=== PATIENT | female | born 1940 | race Caucasian/White ===

== ENCOUNTER 2020-07-06 11:32 | Emergency (ER) | payer MEDICARE ==
[2020-07-06 11:39] VITALS: BP 166/92; PULSE 94; O2SAT 95
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
== END 2020-07-06 12:22 | disposition home or self-care (01) ==
LOC: ED 11:32
DX: S39.012A Strain of muscle, fascia and tendon of lower back, initial encounter (principal); V89.2XXA Person injured in unspecified motor-vehicle accident, traffic, initial encounter
CPT/HCPCS: 99283

== ENCOUNTER 2020-10-15 06:52 | Day surgery (SDC) | payer MEDICARE ==
[~2020-10-15 06:52] MED LIST: Lactated Ringers 1,000 ML IV ONE; Sensorcaine 0.25% 10 ML ONE
[2020-10-15] MEDS ORDERED: CEFAZOLIN 2 GM-D5W BAG** 2 GM/50 ML ML IV ONE (06:56)
[2020-10-15] MEDS ORDERED: Lactated Ringers 1,000 ML IV ONE (06:56)
[2020-10-15] MEDS ORDERED: CEFAZOLIN 2 GM-D5W BAG** 2 GM/50 ML ML IV SCH (07:00)
[2020-10-15] MEDS ORDERED: Lactated Ringers 1,000 ML IV SCH (07:00)
--- NOTE | 2020-10-15 09:41 | HP ---
DATE OF SURGERY: 10/15/2020 HISTORY OF PRESENT ILLNESS: The patient is a 80 year-old found a lump in her right breast. Core biopsy invasive ductal carcinoma. She is now in need of fine needle placement. She did have a great-aunt and first cousin who had breast cancer. She had been discussed options breast conservative therapy, breast mastectomy. Following discussion with the patient she wished to proceed with breast conservation therapy, [place] lymph node biopsy. PAST MEDICAL HISTORY: Hypertension. PAST SURGICAL HISTORY: Denied any prior surgery. Had the core biopsy. MEDICATIONS: Vitamin D3, multivitamin, magnesium, metoprolol. ALLERGIES: NKDA. FAMILY HISTORY: Breast cancer. SOCIAL HISTORY: No smoking or alcohol abuse. REVIEW OF SYSTEMS: Fourteen systems reviewed. No chest pain or palpitations. Other systems negative or noncontributory as above and per preadmission questionnaire. PHYSICAL EXAMINATION: GENERAL: No acute distress. HEENT: Sclerae nonicteric. NECK: No JVD. CHEST: Equal excursion, nonlabored breathing. CVS: Regular rate and rhythm. ABDOMEN: Soft. No peritoneal signs. nontender, nondistended. EXTREMITIES: No significant edema. NEURO: Alert, oriented, moving extremities symmetrically. No gross motor deficits noted. PSYCH: Appropriate mood and affect. BREAST: Right breast density that she has had biopsied with bruising. IMPRESSION: Right breast cancer. She prefers conservative therapy. Will proceed with breast lumpectomy, prior needle placement per radiology as well as [place] node biopsy as an outpatient. Risks and benefits explained in detail including but not limited to bleeding or infection, risk of hematoma or seroma formation, infection possibly needing packing, risks of aches, pain, burning, numbness, problem moving her arm, shoulder, extremity weakness or wing of scapula, risk of lymphedema, risk of contour changes of the breast, risk of needing another procedure to treat it, general risk of anesthesia, deep venous thrombosis, pulmonary embolism, pneumonia, consent obtained, will proceed with lumpectomy with prior needle placement [place] node biopsy as an outpatient.
[2020-10-15] MEDS ORDERED: DIPRIVAN 200 MG/20 ML IV ONE (13:41)
[2020-10-15] MEDS ORDERED: Versed 2 MG/2 ML Injection ONE (13:41)
[2020-10-15] MEDS ORDERED: SUBLIMAZE 100 MCG/2 ML ONE ×2 (13:41→15:17)
[2020-10-15] MEDS ORDERED: Ephedrine Sulfate 50 MG/ML ONE (13:53)
--- NOTE | 2020-10-15 14:37 | XRAY ---
Indication: Right breast cancer. 4 subcutaneous right periareolar injections performed totaling 837 Ci. Delayed anterior and lateral planar images obtained. There are 2 small foci of radiopharmaceutical activity in the upper outer right breast. Impression: 2 foci of radiopharmaceutical activity upper outer quadrant right breast.
--- NOTE | 2020-10-15 14:38 | XRAY ---
Indication: Surgical specimen following needle wire localization. A single specimen radiograph demonstrates a intact hook belinda wire with the entire suspicious breast mass and mammotome clip present. Findings were reported to the surgeon.
--- NOTE | 2020-10-15 14:52 | XRAY ---
Indication: Needle wire localization for ultrasound biopsy-proven 10:00 right breast ductal carcinoma. Informed consent obtained. Right breast was compressed in the LM plane using a alphanumeric grid paddle. Skin was cleansed with Betadine swabs. A 20-gauge Ghiatas needle was then percutaneously. Orthogonal right mammogram was obtained confirming overall good needle tip placement. Ultimately a hooked belinda wire was then inserted into the needle with the outer needle removed. Repeat orthogonal digital mammograms obtained confirms overall good needle placement. Wire were secured and overlying bandage material applied. Patient was then taken to surgery. Impression: Technically successful needle wire localization 10:00 breast mass with mammotome clip. No immediate complications.
[2020-10-15 16:50] VITALS: BP 156/90; PULSE 72; O2SAT 92
--- NOTE | 2020-10-16 10:13 | OP ---
SURGERY DATE/TIME: 10/15/2020 1339 PREOPERATIVE DIAGNOSIS: Right breast cancer. POSTOPERATIVE DIAGNOSIS: Right breast cancer. PROCEDURES: 1) Right breast lumpectomy with prior needle placement. 2) [place] lymph node biopsy right axilla with radio lymphoscintigraphy. SURGEON: Dr. Trent Dobson. ANESTHESIA: General. ESTIMATED BLOOD LOSS: Minimal. INDICATIONS: As noted above. Risks and benefits explained in detail and not limited to and consent obtained. The site is marked in the preoperative holding area after she had been to radiology for nuclear injection and wire placement. DESCRIPTION OF PROCEDURE AND FINDINGS: The patient is taken to the operating room. General anesthesia induced. She is prepped and draped in usual sterile fashion. After official time out and no disagreement with planned procedure, the wire was trimmed a little bit as this wire was placed out towards the axilla it was elected to just make one incision to do both of the [place] nodes and the lumpectomy. Spindle-shaped incision in this part of the skin was taken. Dissection carried down circumferentially around this indurated mass that had previously been core biopsied. Dissection is carried directly off of the chest wall staying directly underneath this trying to create an adequate margin in rim of small amount of breast tissue. The specimen passed off. Radiology called back that the wire and the area in question were within the specimen. There was a little bit of thickened area right on the chest wall heading towards the nipple areolar area this was taken as a posterior-medial margin this is carefully dissected free. The original lumpectomy specimen with prior needle placement was marked with a double tie at 12:00, single tie at 3:00, additional posterior-medial margin with some thickened tissue was marked with two clips at the 3:00 position and single clip at the 12:00 position at the posterior-medial margin. Good hemostasis noted. Small, little inventory associate and driver controlled with 3-0 Vicryl suture ligature. At this time whether or not there was any gillian tissue with the breast specimen. It was passed off before we could put the Neoprobe on it. The Neoprobe was then carefully directed towards the axilla. The lymph node was high uptake around 91 compared to 1100 of the breast itself this is carefully dissected out with a combination of clips and the handheld LigaSure device. Again, this is a true hot [place] node. There were a couple of other nodes that were maybe a trace weaker beside them. They were passed off with that specimen. The Neoprobe did not reveal any other significant uptake in the remainder of the axilla. There was one other thickened node that maybe was plus or minus trace nuclear uptake this node was thickened. It was felt it warranted sending this node as an additional axillary node, passed off for pathology. The remainder of the axilla again the probe did not reveal any other significant uptake to warrant any other dissection. Good hemostasis noted. TERESSA drain is placed in the deep axilla. The axilla fascia fat pad closed back up to the breast tissue with running 3-0 Vicryl. Subcu closed with 3-0 Vicryl, skin closed with 4-0 Vicryl. Steri-Strips and sterile dressing applied. 0.25% Marcaine local injected along the area. TERESSA drain secured with PDS suture and placed to bulb suction. The patient tolerated the procedure well. Findings discussed with the family out in the waiting area.
== END 2020-10-15 17:10 | disposition home or self-care (01) ==
LOC: SDC 06:52
PROVIDERS: ATTEND Surgery
DX: C50.911 Malignant neoplasm of unspecified site of right female breast (principal); Z80.3 Family history of malignant neoplasm of breast; Z79.899 Other long term (current) drug therapy
CPT/HCPCS: 19281; 76098; 78195; 88305; 88307; 88360; 99100; J0690; J2250; J2704; J3010

== ENCOUNTER 2022-05-12 01:36 | Emergency (ER) | payer MEDICARE ==
--- NOTE | 2022-05-12 02:08 | ERPHSYRPT ---
- History of Present Illness Time Seen by Provider: 05/12/22 02:01 Source: patient Exam Limitations: no limitations Patient Subjective Stated Complaint: b/p was high 157/85, headache Triage Nursing Assessment: Pt ambulated into ER without diff. Pt states, "I couldn't sleep and I got up and checked my b/p and it was 157/85. I thought it was high so I came in". Pt alert and oriented x3, pleasant and cooperative. Pt had a headache at 1am and took 1 tylenol but does not have headache at this time. Physician History: Patient is 82-year-old female with significant past medical history of breast cancer as well as recently diagnosed hypertension for which patient was put on losartan 25 mg daily. Patient blood pressure was running around 1 10-1 20 systolic with diastolic in the range of 60-70 but patient was having some lightheadedness so patient called her primary care physician who advised her to stop the blood pressure medicine which she was on losartan 25 mg daily. Today she has a hard time going to sleep so she checks her blood pressure which was 157/85 at home so she got concerned because she was told that when her blood pressure goes above 140 systolic she needs to seek an attention. She denies any other symptoms including chest pain nausea vomiting headache. Currently blood pressure medicines she was started on was losartan and afterwards because of some couple low blood pressure readings she was advised to stop that. Timing/Duration: today Activities at Onset: none Severity of Pain-Max: none Severity of Pain-Current: none Nitro Today/Relief: no nitro taken today Aspirin Treatment Today: no aspirin today Associated Symptoms: denies symptoms Prior Chest Pain/Cardiac Workup: no prior chest pain Allergies/Adverse Reactions: No Known Drug Allergies Allergy (Verified 10/15/20 07:03) Home Medications: Cholecalciferol (Vitamin D3) [Vitamin D3] 400 unit PO DAILY 10/08/20 [History] Magnesium 250 mg PO DAILY 10/08/20 [History] Multivit-Minerals/Folic/Ginkgo [One Daily For Women 50+ Adv Tb] 1 each PO DAILY 10/08/20 [History] Losartan Potassium 25 mg PO DAILY 05/12/22 [History] Tamoxifen Citrate 20 mg PO DAILY 05/12/22 [History] Hx Tetanus, Diphtheria Vaccination/Date Given: No Hx Influenza Vaccination/Date Given: No Hx Pneumococcal Vaccination/Date Given: No Immunizations Up to Date: No Travel Risk - International Travel Have you traveled outside of the country in past 3 weeks: No - Coronavirus Screening Are you exhibiting any of the following symptoms?: No Close contact with a COVID-19 positive Pt in past 14-21 Days: No - Vaccine Status Have you recieved a Covid-19 vaccination: Yes Vinegar Maker: Diasome - Vaccination Dates Date of 2cond Vaccination (if applicable): 04/04/19 - Review of Systems Constitutional: No Symptoms Eyes: No Symptoms Ears, Nose, & Throat: No Symptoms Respiratory: No Symptoms Cardiac: No Symptoms Abdominal/Gastrointestinal: No Symptoms Genitourinary Symptoms: No Symptoms Musculoskeletal: No Symptoms Skin: No Symptoms Neurological: No Symptoms Psychological: No Symptoms Endocrine: No Symptoms Hematologic/Lymphatic: No Symptoms Immunological/Allergic: No Symptoms - Past Medical History Pertinent Past Medical History: Yes Neurological History: No Pertinent History ENT History: No Pertinent History Cardiac History: Hypertension Respiratory History: No Pertinent History Endocrine Medical History: No Pertinent History Musculoskeletal History: No Pertinent History GI Medical History: No Pertinent History History: No Pertinent History Psycho-Social History: No Pertinent History Female Reproductive Disorders: Breast Cancer Other Medical History: lump in right breast had biopsy, local anesthetic used. positive for breast ca. - Past Surgical History Past Surgical History: Yes Neuro Surgical History: No Pertinent History Cardiac: No Pertinent History Respiratory: No Pertinent History Gastrointestinal: No Pertinent History Genitourinary: No Pertinent History Musculoskeletal: No Pertinent History Female Surgical History: Lumpectomy - Social History Smoking Status: Never smoker Exposure to second hand smoke: No Drug Use: none Patient Lives Alone: No Significant Family History: no pertinent family hx - Nursing Vital Signs Nursing Vital Signs: Initial Vital Signs Temperature 97.9 F 05/12/22 01:46 Pulse Rate 99 H 05/12/22 01:46 Respiratory Rate 18 05/12/22 01:46 Blood Pressure 189/104 05/12/22 01:46 O2 Sat by Pulse Oximetry 96 05/12/22 01:46 Pain Scale Pain Intensity 0 - Physical Exam General Appearance: no apparent distress, alert Eye Exam: PERRL/EOMI, eyes nml inspection Ears, Nose, Throat Exam: normal ENT inspection, moist mucous membranes Neck Exam: normal inspection, non-tender, supple Respiratory Exam: normal breath sounds, lungs clear, No respiratory distress Cardiovascular Exam: regular rate/rhythm, normal heart sounds, No edema Gastrointestinal/Abdomen Exam: soft, No tenderness, No mass Back Exam: normal inspection, No CVA tenderness, No vertebral tenderness Extremity Exam: normal inspection, normal range of motion Neurologic Exam: alert, oriented x 3, cooperative, normal mood/affect, nml cerebellar function, sensation nml, No motor deficits Skin Exam: normal color, warm, dry Lymphatic Exam: No adenopathy SpO2: 96 - Course Nursing assessment & vital signs reviewed: Yes - Progress Progress: improved Air Movement: good Progress Note: 05/12/22 02:09 And was given 25 mg of losartan from on medicine supply in the emergency room. Patient was observed for 30 minutes. Patient was educated regarding blood pressure management. She is advised to take half her pill of losartan 25 mg every morning. Education about hypertension given. Counseled pt/family regarding: diagnosis, need for follow-up Medical Desision Making - Diagnostic Testing Diagnostic test were ordered, analyzed, and reviewed by me: No - Risk of complications Low Risk: Low risk of morbidity from additional dx testing or treatment - Departure Departure Disposition: Home Clinical Impression: Hypertension Qualifiers: Hypertension type: primary hypertension Qualified Code(s): I10 - Essential (primary) hypertension Condition: Stable Critical Care Time: No Referrals: BIA RECINOS [Primary Care Provider] - Follow Up with PCP/3 days Instructions: High Blood Pressure in Adults, High Blood Pressure (DC), High Blood Pressure Emergencies Additional Instructions: Please take losartan half tablet every morning which will be 12.5 mg every morning. It usually takes 1 to 2 weeks for your body to get adjust to the medication. During that time your blood pressure will fluctuate. For next 2 weeks your blood pressure range will be 1 40-1 50 systolic while 60-80 diastolic. Do not stop your blood pressure medicine suddenly. Follow-up with your primary care physician in next 2 to 3 days for further evaluation. Discharge/Care Plan BRYSON ROGERS was seen on 05/12/22 in the Emergency Room. The patient was counseled regarding Diagnosis,Lab results, Imaging studies, need for follow up and when to return to the Emergency Room. Prescriptions given: Discharge Note I have spoken with the patient and/or caregivers. I have explained the patient's condition, diagnosis and treatment plan based on the information available to me at this time. I have answered the patient's and/or caregiver's questions and addressed any concerns. The patient and/or caregivers have as good understanding of the patient's diagnosis, condition and treatment plan as can be expected at this point. The vital signs have been stable. The patient's condition is stable and appropriate for discharge from the emergency department. The patient will pursue further outpatient evaluation with the primary care physician or other designated or consulting physician as outlined in the discharge instructions. The patient and/or caregivers are agreeable to this plan of care and follow-up instructions have been explained in detail. The patient and/or caregivers have received these instruction. The patient/and or caregivers are aware that any significant change in condition or worsening of symptoms should prompt an immediate return to this or the closest emergency department or call 911. SUEBRYSON Vasquez was seen on 05/12/22 n the Emergency Room. At that time you were treated for an emergent condition, during your visit Laboratory, Radiology and/or other procedures may have been ordered. It is very important that you follow-up with your Primary Care Physician BIA RECINOS within the next 24- 48 hours to review your Emergency Room visit and the final results of testing that was ordered. Some test results such as Urine Cultures, Blood Cultures, and other cultures if ordered will not be finalized for 24-48 hours. If you do not have a Primary Care Provider please call the medical records department at [phone] ext [phone] to obtain a copy of your results or you may sign into our patient portal to obtain these results by visiting us @ [email or web address] and completing the following steps: 1. Click on the Patient Portal link 2. Click the Patient Self Enrollment Link to complete the enrollment form and entering your 3. Once the enrollment form is completed you will receive an email with a temporary ID and password at the email address you provided. 4. Next choose a user name and password. Your user name must be at least 4 characters long and your password must be at least 4 characters long. 5. Choose a security question from the list and provide your answer to the question. If you already have signed into the Health Portal you may access your Health Care Information 08/09 by the following steps: 1. Login to our website @ [email or web address] 2. Enter your original user name and password. FAQS The [facility] Health Portal is an online tool that contains your Lab Results, Radiology Reports, Visit History, Discharge Instructions and Health Summary Lab and Radiology Results will not be available for 72 hours on the portal. The Portal is a secure site, passwords are encryted and URLs are re-written so they cannot be copied and pasted. You and authorized family members are the only ones who can access your Portal. Also there is a timeout feature that protects your information if you leave the Portal page open. If you have technical difficulty please use the Contact Us link on the page this will allow you to submit any questions you have regarding the Portal or you may contact the Medical Record Department at [phone] ext [phone].
[2022-05-12 03:05] VITALS: BP 165/87; PULSE 78; O2SAT 95
== END 2022-05-12 03:08 | disposition home or self-care (01) ==
LOC: ED 01:36
DX: I10 Essential (primary) hypertension (principal); Z79.899 Other long term (current) drug therapy
CPT/HCPCS: 99282

== ENCOUNTER 2024-10-30 09:04 | Emergency (ER) | payer MEDICARE ==
[2024-10-30 09:18] VITALS: TEMP 98.4
--- NOTE | 2024-10-30 09:33 | ERPHSYRPT ---
- History of Present Illness Time Seen by Provider: 10/30/24 09:32 Source: patient Exam Limitations: no limitations Patient Subjective Stated Complaint: pt c/o of palpatations causing her to be dizzy and unsteady on her feet and like she may pass out, reports that it feels like it goes up her neck and stiffen up and then her face will go a little numb, pt is seeing a cardiolgist on due to wearing a monitor and having a rapid heart beat Triage Nursing Assessment: Pt brought to the ER by her great niece, hypertensive, tachypnic, denies pain, pulses normal, skin n/w/d, denies chest pain, denies SOB, doesn't appear to be in any distress Physician History: Patient presents to the emergency room with palpitations causing her face to feel numb for a few brief seconds. She denies change in speech, facial drooping, weakness. She says this has happened multiple times in the past. She recently wore a Holter monitor which showed elevated heart rates but otherwise unremarkable. 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 She denies shortness of breath, chest pain or swelling. No history of A-fib. Patient does feel anxious when the heart rate begins to rise. She denies any urinary symptoms. Timing/Duration: today, resolved prior to arrival Activities at Onset: rest Chest Pain Radiation: no radiation Severity of Pain-Max: none Severity of Pain-Current: none Aspirin Treatment Today: no aspirin today Allergies/Adverse Reactions: No Known Drug Allergies Allergy (Verified 10/30/24 09:18) Home Medications: Cholecalciferol (Vitamin D3) [Vitamin D3] 400 unit PO DAILY 10/08/20 [History] Magnesium 250 mg PO DAILY 10/08/20 [History] Multivit-Minerals/Folic/Ginkgo [One Daily For Women 50+ Adv Tb] 1 each PO DAILY 10/08/20 [History] Losartan Potassium 25 mg PO DAILY 05/12/22 [History] Tamoxifen Citrate 20 mg PO .EVERY OTHER DAY 05/12/22 [History] Hx Tetanus, Diphtheria Vaccination/Date Given: No Hx Influenza Vaccination/Date Given: No Hx Pneumococcal Vaccination/Date Given: No Travel Risk - International Travel Have you traveled outside of the country in past 3 weeks: No - Emerging Infectious Disease Are you exhibiting symptoms associated with any current EIDs: No - Review of Systems All Other Systems: Reviewed and Negative - Past Medical History Pertinent Past Medical History: Yes Neurological History: No Pertinent History ENT History: No Pertinent History Cardiac History: Hypertension Respiratory History: No Pertinent History Endocrine Medical History: No Pertinent History Musculoskeletal History: No Pertinent History GI Medical History: No Pertinent History History: No Pertinent History Psycho-Social History: No Pertinent History Female Reproductive Disorders: Breast Cancer Other Medical History: lump in right breast had biopsy, local anesthetic used. positive for breast ca. - Past Surgical History Past Surgical History: Yes Neuro Surgical History: No Pertinent History Cardiac: No Pertinent History Respiratory: No Pertinent History Gastrointestinal: No Pertinent History Genitourinary: No Pertinent History Musculoskeletal: No Pertinent History Female Surgical History: Lumpectomy Other Surgical History: lump removed from right breast Significant Family History: no pertinent family hx - Social History Smoking Status: Never smoker Exposure to second hand smoke: No Drug Use: none - Social Determinants of Health Will the patient participate in the screening: Yes Do you worry about a steady place to live?: No Do you have any problems with any of the following?: No known problems In the past 12 months,have you had to go without utilities?: No Transportation Issues: No Has anyone in your support network made you feel unsafe?: No Have you or anyone in your house had to go w/o enough food: No - Nursing Vital Signs Nursing Vital Signs: Initial Vital Signs Temperature 98.4 F 10/30/24 09:10 Pulse Rate 85 10/30/24 09:10 Respiratory Rate 28 H 10/30/24 09:10 Blood Pressure 175/86 10/30/24 09:10 O2 Sat by Pulse Oximetry 97 10/30/24 09:10 Pain Scale Pain Intensity 0 - Physical Exam General Appearance: no apparent distress Eye Exam: PERRL/EOMI, eyes nml inspection Ears, Nose, Throat Exam: normal ENT inspection, TMs normal Neck Exam: normal inspection, non-tender, supple, full range of motion Respiratory Exam: normal breath sounds, lungs clear, airway intact, No respiratory distress Cardiovascular Exam: regular rate/rhythm, normal heart sounds, capillary refill <2 sec, No edema Gastrointestinal/Abdomen Exam: soft, No tenderness Neurologic Exam: alert, oriented x 3, cooperative, plywood 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 back feeder II-XII nml as tested, normal mood/affect, nml cerebellar function, sensation nml Skin Exam: normal color, warm, dry, No rash SpO2 Interpretation: normal SpO2: 97 O2 Delivery: Room Air - Course Nursing assessment & vital signs reviewed: Yes EKG Interpreted by Me: RATE (85), Sinus Rhythm, NORMAL AXIS, NORMAL INTERVALS, NORMAL QRS, NORMAL ST-T Ordered Tests: Active Orders 24 hr Category Date Time Status EKG-ER Only STAT Care 10/30/24 10:01 Active CBC W DIFF Stat Lab 10/30/24 09:45 Completed CMP Stat Lab 10/30/24 09:45 Completed MAGNESIUM Stat Lab 10/30/24 09:45 Completed TROPONIN Q4H Lab 10/30/24 09:45 Completed TROPONIN Q4H Lab 10/30/24 14:00 Ordered TROPONIN Q4H Lab 10/30/24 18:00 Ordered UA W/RFX UR CULTURE Stat Lab 10/30/24 10:36 Completed Medication Summary Discontinued Medications Generic Name Dose Route Start Last Admin Trade Name Freq PRN Reason Stop Dose Admin Sodium Chloride 1,000 mls @ 999 mls/hr 10/30/24 09:51 10/30/24 10:00 Sodium Chloride 0.9% 1000 Ml IV 10/30/24 10:51 999 mls/hr .Q1H1M STA Administration Sodium Chloride Confirm 10/30/24 09:59 Sodium Chloride 0.9% 1000 Ml Administered 10/30/24 10:00 Dose 1,000 mls @ ud .ROUTE .STK-MED ONE Lab/Rad Data: Laboratory Result Diagrams 10/30/24 09:45 10/30/24 09:45 Laboratory Results 10/30/24 10/30/24 10/30/24 Range/Units 10:36 09:45 09:45 WBC (3.98-10.04) x10^3/uL RBC (3.93-5.22) x10^6/uL Hgb (11.2-15.7) g/dL Hct (34.1-44.9) % MCV (79.4-94.8) fL MCH (25.6-32.2) pg MCHC (32.2-35.5) g/dL RDW (11.7-14.4) % Plt Count (182-369) x10^3/uL MPV (9.4-12.3) fL Gran % (34.0-71.1) % Immature Gran % (Auto) (0.001-0.429) % Nucleat RBC Rel Count (0.00-0.2) % Eos # (Auto) (0.04-0.36) x10^3/uL Immature Gran # (Auto) (0.001-0.031) x10^3u/L Absolute Lymphs (auto) (1.18-3.74) x10^3/uL Absolute Monos (auto) (0.24-0.86) x10^3/uL Absolute Nucleated RBC (0.00-0.012) x10^3u/L Lymphocytes % (19.3-51.7) % Monocytes % (4.7-12.5) % Eosinophils % (0.7-5.8) % Basophils % (0.1-1.2) % Absolute Granulocytes (1.56-6.13) x10^3/uL Basophils # (0.01-0.08) x10^3/uL Sodium 139 (135-145) mmol/L Potassium 4.6 (3.5-5.1) mmol/L Chloride 105 (98-107) mmol/L Carbon Dioxide 27 (22-30) mmol/L Anion Gap 12.3 (5-15) MEQ/L BUN 22 H (7-17) mg/dL Creatinine 1.19 H (0.52-1.04) mg/dL Estimated GFR 45.7 ML/MIN Glucose 83 (74-106) mg/dL Calcium 9.8 (8.4-10.2) mg/dL Magnesium 2.1 (1.6-2.3) mg/dL Total Bilirubin 0.30 (0.2-1.3) mg/dL AST 25 (14-36) U/L ALT 16 (0-35) U/L Alkaline Phosphatase 52 (38-126) U/L Troponin I < 0.012 (0.000-0.033) ng/mL Serum Total Protein 6.9 (6.3-8.2) g/dL Albumin 4.0 (3.5-5.0) g/dL Urine Color Yellow (Yellow) Urine Appearance Cloudy A (Clear) Urine pH 5.5 (4.6-8.0) Ur Specific [place] 1.010 (1.005-1.030) Urine Protein Negative (Negative) Urine Glucose (UA) Negative (Negative) mg/dL Urine Ketones Negative (Negative) Urine Blood Negative (Negative) Urine Nitrite Negative (Negative) Urine Bilirubin Negative (Negative) Urine Urobilinogen 0.2 (0.2) mg/dL Ur Leukocyte Esterase Small A (Negative) U Hyaline Cast (Auto) NONE SEEN (0-2) /LPF Urine Microscopic RBC 0-2 (0-5) /HPF Urine Microscopic WBC 11-20 A (0-5) /HPF Ur Epithelial Cells Moderate A (None Seen) /HPF Urine Bacteria Few A (None Seen) /HPF Urine Culture Reflexed NO (NO) 10/30/24 Range/Units 09:45 WBC 8.1 (3.98-10.04) x10^3/uL RBC 4.13 (3.93-5.22) x10^6/uL Hgb 12.3 (11.2-15.7) g/dL Hct 38.8 (34.1-44.9) % MCV 93.9 (79.4-94.8) fL MCH 29.8 (25.6-32.2) pg MCHC 31.7 L (32.2-35.5) g/dL RDW 12.6 (11.7-14.4) % Plt Count 245 (182-369) x10^3/uL MPV 10.1 (9.4-12.3) fL Gran % 50.7 (34.0-71.1) % Immature Gran % (Auto) 0.4 (0.001-0.429) % Nucleat RBC Rel Count 0.0 (0.00-0.2) % Eos # (Auto) 0.39 H (0.04-0.36) x10^3/uL Immature Gran # (Auto) 0.03 (0.001-0.031) x10^3u/L Absolute Lymphs (auto) 2.44 (1.18-3.74) x10^3/uL Absolute Monos (auto) 1.09 H (0.24-0.86) x10^3/uL Absolute Nucleated RBC 0.00 (0.00-0.012) x10^3u/L Lymphocytes % 30.1 (19.3-51.7) % Monocytes % 13.5 H (4.7-12.5) % Eosinophils % 4.8 (0.7-5.8) % Basophils % 0.5 (0.1-1.2) % Absolute Granulocytes 4.11 (1.56-6.13) x10^3/uL Basophils # 0.04 (0.01-0.08) x10^3/uL Sodium (135-145) mmol/L Potassium (3.5-5.1) mmol/L Chloride (98-107) mmol/L Carbon Dioxide (22-30) mmol/L Anion Gap (5-15) MEQ/L BUN (7-17) mg/dL Creatinine (0.52-1.04) mg/dL Estimated GFR ML/MIN Glucose (74-106) mg/dL Calcium (8.4-10.2) mg/dL Magnesium (1.6-2.3) mg/dL Total Bilirubin (0.2-1.3) mg/dL AST (14-36) U/L ALT (0-35) U/L Alkaline Phosphatase (38-126) U/L Troponin I (0.000-0.033) ng/mL Serum Total Protein (6.3-8.2) g/dL Albumin (3.5-5.0) g/dL Urine Color (Yellow) Urine Appearance (Clear) Urine pH (4.6-8.0) Ur Specific [place] (1.005-1.030) Urine Protein (Negative) Urine Glucose (UA) (Negative) mg/dL Urine Ketones (Negative) Urine Blood (Negative) Urine Nitrite (Negative) Urine Bilirubin (Negative) Urine Urobilinogen (0.2) mg/dL Ur Leukocyte Esterase (Negative) U Hyaline Cast (Auto) (0-2) /LPF Urine Microscopic RBC (0-5) /HPF Urine Microscopic WBC (0-5) /HPF Ur Epithelial Cells (None Seen) /HPF Urine Bacteria (None Seen) /HPF Urine Culture Reflexed (NO) - Progress Progress: improved Air Movement: good Progress Note: The patient is suffering from tachycardia, but the immediate cause is not apparent. Potential causes considered include, but are not limited to, infection, hyperthyroidism, pulmonary embolism, pericarditis, dehydration, anemia, pheochromocytoma, drug/alcohol withdrawal or intoxication. Workup: CBC, CMP, Mg, Troponin, UA, ECG deferred TSH due to recent normal lab PERC neg, no d dimer ordered Interventions: 1L 0.9% NS IVF Despite the evaluation including history, exam, and testing, the cause of the tachycardia remains unclear. However the history, exam, and tests do not raise concern for the above emergent diagnoses. Disposition: During the ED stay, patients tachycardia improved, and at the time of discharge they are feeling well and want to go home. Follow up with cardio on . 10/30/24 10:55 UA shows UTI so she was started on Macrobid. Blood Culture(s) Obtained: No Antibiotics given: No Counseled pt/family regarding: lab results, diagnosis, need for follow-up Medical Desision Making - Diagnostic Testing Diagnostic test were ordered, analyzed, and reviewed by me: Yes Radiological Interpretation: Interpreted by me - Risk of complications Low Risk: Low risk of morbidity from additional dx testing or treatment - Departure Departure Disposition: Home Clinical Impression: Palpitations, Dehydration, UTI (urinary tract infection) Condition: Stable Critical Care Time: No Referrals: [facility] RECINOS [Primary Care Provider, [facility]] - Follow up/PCP as directed Instructions: Palpitations (DC) Prescriptions: Nitrofurantoin Macro 100 mg [Macrobid 100MG Capsule] 100 mg PO BID 5 Days #9 cap
[2024-10-30 09:58] LABS: BASOPHIL % 0.5 % (0.1-1.2); Basophil (Absolute #) 0.04 x10^3/uL (0.01-0.08); Eosinophil (Absolute #) 0.39 x10^3/uL (0.04-0.36); Hematocrit 38.8 % (34.1-44.9); Hemoglobin 12.3 g/dL (11.2-15.7); IMMATURE GRAN # 0.03 x10^3u/L (0.001-0.031); IMMATURE GRAN % 0.4 % (0.001-0.429); Lymphocyte (Absolute #) 2.44 x10^3/uL (1.18-3.74); Mean Corpuscular Hemoglobin 29.8 pg (25.6-32.2); Mean Corpuscular Hgb Concent. 31.7 g/dL (32.2-35.5); Monocyte (Absolute #) 1.09 x10^3/uL (0.24-0.86); NUCLEATED RBC # 0.00 x10^3u/L (0.00-0.012); NUCLEATED RBC % 0.0 % (0.00-0.2); Platelet Count 245 x10^3/uL (182-369); Red Blood Count 4.13 x10^6/uL (3.93-5.22); White Blood Count 8.1 x10^3/uL (3.98-10.04)
[2024-10-30 10:12] LABS: Calcium 9.8 mg/dL (8.4-10.2); Carbon Dioxide 27.0 mmol/L (22-30); Creatinine 1 1.19 mg/dL (0.52-1.04); EST GLOMERULAR FILTRATION RATE 45.7 ML/MIN; Glucose 83.0 mg/dL (74-106); Potassium 4.6 mmol/L (3.5-5.1); SGOT/AST 25.0 U/L (14-36); SGPT/ALT 16.0 U/L (0-35); Total Protein 6.9 g/dL (6.3-8.2)
[2024-10-30 10:49] LABS: Glucose, Urine Negative (Negative); Protein,Urine Dip Negative (Negative); RBC 0-2 /HPF (0-5)
[2024-10-30] MEDS ORDERED: Macrobid 100MG Capsule ONE (11:33)
[2024-10-30] MEDS: Macrobid 100MG Capsule PO ONE (11:33)
[2024-10-30 11:37] VITALS: O2SAT 96
[2024-10-30 11:55] VITALS: BP 170/75; PULSE 91; RESP 17
== END 2024-10-30 11:55 | disposition home or self-care (01) ==
LOC: ED 09:04
DX: R00.2 Palpitations (principal); E86.0 Dehydration; N39.0 Urinary tract infection, site not specified; I10 Essential (primary) hypertension; Z79.899 Other long term (current) drug therapy